=== PATIENT | female | born 1990 | race Caucasian/White ===

== ENCOUNTER 2020-10-15 07:06 | Inpatient (IN) | payer BC ==
[~2020-10-15 07:06] MED LIST: Lidocaine 1.5% with EPINEPHrine 1:200,000 5 ML Amp ONE
[2020-10-15] MEDS ORDERED: Nalbuphine 10 MG/1 ML Vial IVPUSH PRN (07:15)
[2020-10-15] MEDS ORDERED: Oxytocin/Lactated Ringers 10 UNIT/1,000 ML BAG IV SCH ×2 (07:15)
[2020-10-15] MEDS ORDERED: Ondansetron 4 MG/2 ML SDV IVPUSH PRN (07:15)
[2020-10-15] MEDS ORDERED: Calcium Carbonate 500 MG Tab.Chew PO PRN (07:15)
[2020-10-15] MEDS ORDERED: Sodium Chloride 0.9% 10 ML Syringe FLUSH PRN (07:15)
[2020-10-15] MEDS: Lactated Ringers 1,000 ML IV SCH ×4 (07:59→13:34)
[2020-10-15] MEDS ORDERED: diphenhydrAMINE 50 MG/ML SDV IVPUSH PRN (11:33)
[2020-10-15] MEDS ORDERED: Bupivacaine/fentaNYL/NS 100 ML Bag EPIDUR PRN (11:33)
[2020-10-15] MEDS ORDERED: fentaNYL 100 MCG/2 ML SDV EPIDUR PRN (11:33)
[2020-10-15] MEDS ORDERED: ePHEDrine 50 MG/ML SDV IVPUSH PRN (11:33)
--- NOTE | 2020-10-15 11:45 | PCM.PREANE ---
Preanesthetic Assessment - Procedure Proposed Procedure: Continuous labor epidural - Anesthesia/Transfusion/Family Hx Anesthesia History: Prior Anesthesia Without Reaction Transfusion History: No Prior Transfusion(s) - Review of Systems General: No Symptoms Pulmonary: No Symptoms Cardiovascular: No Symptoms Gastrointestinal: No Symptoms Neurological: No Symptoms Other: Reports: None - Physical Assessment Vital Signs: Last Vital Signs Temp 97.9 F 10/15/20 07:15 Pulse 94 10/15/20 07:15 Resp 16 10/15/20 07:15 BP 107/73 10/15/20 07:15 Pulse Ox 100 10/15/20 07:15 Height: 1.57 m Weight: 71.214 kg ASA Class: 2 Mental Status: Alert & Oriented x3 Airway Class: Mallampati = 1 Dentition: Reports: Normal Dentition Thyro-Mental Finger Breadths: 3 Mouth Opening Finger Breadths: 3 ROM/Head Extension: Full Lungs: Clear to Auscultation, Normal Respiratory Effort Cardiovascular: Regular Rate, Regular Rhythm - Lab Values: Laboratory Last Values WBC 10.78 K/mm3 (3.98-10.04) H 10/15/20 07:30 RBC 4.10 M/mm3 (3.98-5.22) 10/15/20 07:30 Hgb 12.4 gm/dl (11.2-15.7) 10/15/20 07:30 Hct 36.7 % (34.1-44.9) 10/15/20 07:30 MCV 89.5 fl (79.4-94.8) 10/15/20 07:30 MCH 30.2 pg (25.6-32.2) 10/15/20 07:30 MCHC 33.8 g/dl (32.2-35.5) 10/15/20 07:30 RDW Std Deviation 41.2 fL (36.4-46.3) 10/15/20 07:30 Plt Count 264 K/mm3 (182-369) 10/15/20 07:30 MPV 10.0 fl (9.4-12.3) 10/15/20 07:30 Neut % (Auto) 75.0 % (34.0-71.1) H 10/15/20 07:30 Lymph % (Auto) 18.2 % (19.3-51.7) L 10/15/20 07:30 [place] % (Auto) 4.5 % (4.7-12.5) L 10/15/20 07:30 Eos % (Auto) 1.6 (0.7-5.8) 10/15/20 07:30 Baso % (Auto) 0.2 % (0.1-1.2) 10/15/20 07:30 Neut # (Auto) 8.10 K/mm3 (1.56-6.13) H 10/15/20 07:30 Lymph # (Auto) 1.96 K/mm3 (1.18-3.74) 10/15/20 07:30 [place] # (Auto) 0.48 K/mm3 (0.24-0.36) H 10/15/20 07:30 Eos # (Auto) 0.17 K/mm3 (0.04-0.36) 10/15/20 07:30 Baso # (Auto) 0.02 K/mm3 (0.01-0.08) 10/15/20 07:30 SARS-CoV-2 RNA (YUE) Negative (NEGATIVE) 10/15/20 07:35 - Allergies Allergies/Adverse Reactions: Allergies Allergy/AdvReac Type Severity Reaction Status Date / Time No Known Allergies Allergy Verified 03/08/18 07:42 - Acknowledgements Anesthesia Type Planned: Epidural Pt an Appropriate Candidate for the Planned Anesthesia: Yes Alternatives and Risks of Anesthesia Discussed w Pt/Guardian: Yes Pt/Guardian Understands and Agrees with Anesthesia Plan: Yes PreAnesthesia Questionnaire - Past Health History Medical/Surgical History: Denies 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: - Past Surgical History HEENT Surgical History: Reports: Oral Surgery Other HEENT Surgeries/Procedures: [place] teeth - SUBSTANCE USE Tobacco Use Status *Q: Never Tobacco User Second Hand Smoke Exposure: No Recreational Drug Use History: No - HOME MEDS Home Medications: Home Meds Vit with Ca/FA/Iron [ Plus Iron] 1 each PO DAILY tablet 02/23/16 [Rx] Ferrous Sulfate [Iron] 325 mg PO DAILY 03/08/18 [History] Acetaminophen [Tylenol] 650 mg PO Q4H PRN tablet 10/16/20 [Rx] Ibuprofen [Motrin] 600 mg PO Q4H PRN tablet 10/16/20 [Rx] - CURRENT (IN HOUSE) MEDS Current Meds: Current Medications Calcium Carbonate/Glycine (Tums) 1,000 mg PO Q2H PRN PRN Reason: Indigestion Diphenhydramine HCl (Benadryl) 25 mg IVPUSH Q6H PRN PRN Reason: pruritis Ephedrine Sulfate (Ephedrine Sulfate) 5 mg IVPUSH ASDIRECTED PRN PRN Reason: Hypotension Fentanyl (Sublimaze) 100 mcg EPIDUR Q3H PRN PRN Reason: Pain Fentanyl/Bupivacaine HCl (Fentanyl/Bupivacaine/Ns 2 Mcg-0.125% 100 Ml) 100 ml EPIDUR ASDIRECTED PRN PRN Reason: Pain Oxytocin/Lactated Ringer's (Pitocin In Lr 10 Units/1,000 Ml) 10 unit in 1,000 mls @ 12 mls/hr IV TITRATE CHETNA; Protocol Last Titration: 10/15/20 09:30 Dose: 10 munits/min, 60 mls/hr Documented by: Oxytocin/Lactated Ringer's (Pitocin In Lr 10 Units/1,000 Ml) 10 unit in 1,000 mls @ 500 mls/hr IV .CONTINUOUS CHETNA Lactated Ringer's (Ringers, Lactated) 1,000 mls @ 100 mls/hr IV ASDIRECTED CHETNA Last Admin: 10/15/20 11:17 Dose: 100 mls/hr Documented by: Nalbuphine HCl (Nubain) 10 mg IVPUSH Q2H PRN PRN Reason: Pain Ondansetron HCl (Zofran) 4 mg IVPUSH Q4H PRN PRN Reason: Nausea/Vomiting Sodium Chloride (Saline Flush) 10 ml FLUSH ASDIRECTED PRN PRN Reason: Keep Vein Open
--- NOTE | 2020-10-15 11:51 | PCM.LDHP ---
L&D History of Present Illness - General Date of Service: 10/15/20 Admit Problem/Dx: Patient Status Order with Admit Dx/Problem 10/15/20 07:15 Patient Status [ADT] Routine Admission Diagnosis/Problem Admission Diagnosis/Problem 10/15/20 11:43 Dorie is a 30-year-old 3 para 2-0-0-2 white female who was admitted on the a.m. of 10/15/2020 at 40 and 07 weeks gestational age with an MARIKA of 10/15/2020 for induction of labor. Source of Information: Patient History Limitations: Reports: No Limitations - History of Present Illness Introduction:: Dorie is a 30-year-old 3 para 2-0-0-2 white female who was admitted on the a.m. of 10/15/2020 at 40 and 07 weeks gestational age with an MARIKA of 10/15 for induction of labor. Process and procedure of induction of labor, its risks, benefits, alternatives of care including allowing for natural onset of labor are all discussed with patient and her . They appear to understand and wished to proceed. 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 Her MARIKA of 10/15/2020 was determined by a certain last menstrual period starting 01/09/2020 and supported by 2 ultrasounds done on 03/11/2020 at 9-0/7 weeks and again on 05/28/2020 at 20-3/7 weeks gestational age. Patient was seen early in her care at 9 weeks gestational age, was seen on a regular basis throughout the care. Her vital signs remained stable through the care. Her weight gain was from 132 pounds to 154.6 pounds. Fundal height growth was appropriate. Patient desires an epidural in labor delivery. She is group B strep negative. She declined genetic testing. She reports it being Covid19 test positive back in June 2020. She has no residual effects from this infection. She plans to breast-feed. She had her flu shot on 06/02/2020. Her Tdap was given on 07/28/2020. She had her HPV vaccinations back in 2010. Her hepatitis A vaccination in 2013. Her hepatitis B immunizations were given in 1992 and her meningococcal immunization was given in 2013. Her 2 previous pregnancies were as follows: 1. Female infant born 02/21/2014 at 40-4/7 weeks gestational age after 12 hours of labor7 pounds 3 ouncesNSVDepiduralSt. [facility] Hospital[facility]od 2. Female infant born 03/08/2018 at 40-5/7 weeks gestational age after 6 hours of labor8 pounds 5 ouncesNSVDepiduralSt. Highland-[facility] Hospitalchild[facility] name is [place] Laboratory testing in shows blood to be a positive screen. First labs showed a hemoglobin of 12.2 g/dL and platelets at 256,000. She is rubella immune. RPR is nonreactive. Urine culture was negative. Hepatitis B surface antigen and HIV assays were both negative. Chlamydia and gonorrhea tests were both negative. Second trimester labs showed a hemoglobin 11.4 g/dL at which time patient was started on ferrous sulfate 325 mg p.o. daily. Her platelet count at that time was 251,000 and her 1 hour GTT was normal at 116. Her group B strep screen was negative. RPR was repeated on 07/22/2020 that was also nonreactive. Allergies: None Medications: 1. vitamins 1 p.o. daily 2. Ferrous sulfate 325 mg p.o. daily. Past medical history: 1. x2 2. [place] teeth removal Past surgical history: Unremarkable. Family history: Mother and father are alive and well. Mother is status post thyroidectomy. Father's family carries factor V Leiden mutation but this has not been a problem with her. Maternal grandmother is secondary to COPD secondary to smoking. Maternal grandfather is alive but was also a smoker. Paternal grand mother was a smoker has a history of lung cancer. Also has a history of arthritis. Paternal grandfather is alive. Health is unknown. There are no bleeding, clotting, anesthesia or problems related in the [facility]. Social history: Patient is . 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 She is a college graduate. Her is Jhon. She does not use any significant muscle alcohol, drugs or tobacco. They live in [place]. Review of systems: In general patient has no complaints. AV has been active. Skin: Negative Lungs: No infectious symptoms or shortness of breath Cardiovascular: No chest pain or exercise intolerance Breasts: No lumps, changes in size, pain, dimpling, discharge or axillary or supraclavicular concerns. GI: Negative : changes only Musculoskeletal: Negative Neurological: Negative Physical exam: In general the patient is well-developed, well-nourished, pleasant female of stated age in no acute distress. Last evaluation clinic on 10/07/2020 patient's weight was 154.6 with a pregravid weight of 132 pounds. Height is 5 feet 2 inches. Pregravid body mass index is 23.2. Blood pressure was 100/58 38 cm. Skin is warm dry without lesions. HEENT, neck and back within normal limits. Lungs are clear with good breath sounds in all lung morton. Cardiovascular exam shows regular and rhythm without murmurs. Breast exam is deferred at this time having been done at first visit and found to be normal it is not repeated at. Abdomen is gravid with last fundal height in clinic at 38 cm with baby in vertex presentation by Sanjay maneuvers Genital per digital exam on last evaluation clinic shows cervix to be 2 cm, very soft, -3, mid position, 70% effaced.. Extremities and neurological exam are grossly within normal limits. 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: - Past Surgical History HEENT Surgical History: Reports: Oral Surgery Other HEENT Surgeries/Procedures: [place] teeth Social & Family History - Family History Family Medical History: No Pertinent Family History - Tobacco Use Tobacco Use Status *Q: Never Tobacco User Second Hand Smoke Exposure: No - Caffeine Use Caffeine Use: Reports: Coffee - Recreational Drug Use Recreational Drug Use: No H&P Review of Systems - Review of Systems: Review Of Systems: See Below L&D Exam - Exam Exam: See Below - Vital Signs Vital Signs: Last Vital Signs Temp 36.6 C 10/15/20 07:15 Pulse 94 10/15/20 07:15 Resp 16 10/15/20 07:15 BP 107/73 10/15/20 07:15 Pulse Ox 100 10/15/20 07:15 Weight: 71.214 kg - Patient Data Lab Results Last 24 hrs: Laboratory Results - last 24 hr 10/15/20 10/15/20 Range/Units 07:30 07:35 WBC 10.78 H (3.98-10.04) K/mm3 RBC 4.10 (3.98-5.22) M/mm3 Hgb 12.4 (11.2-15.7) gm/dl Hct 36.7 (34.1-44.9) % MCV 89.5 (79.4-94.8) fl MCH 30.2 (25.6-32.2) pg MCHC 33.8 (32.2-35.5) g/dl RDW Std Deviation 41.2 (36.4-46.3) fL Plt Count 264 (182-369) K/mm3 MPV 10.0 (9.4-12.3) fl Neut % (Auto) 75.0 H (34.0-71.1) % Lymph % (Auto) 18.2 L (19.3-51.7) % [place] % (Auto) 4.5 L (4.7-12.5) % Eos % (Auto) 1.6 (0.7-5.8) Baso % (Auto) 0.2 (0.1-1.2) % Neut # (Auto) 8.10 H (1.56-6.13) K/mm3 Lymph # (Auto) 1.96 (1.18-3.74) K/mm3 [place] # (Auto) 0.48 H (0.24-0.36) K/mm3 Eos # (Auto) 0.17 (0.04-0.36) K/mm3 Baso # (Auto) 0.02 (0.01-0.08) K/mm3 SARS-CoV-2 RNA (YUE) Negative (NEGATIVE) Result Diagrams: 10/15/20 07:30 Problem List Initiated/Reviewed/Updated: Yes Orders Last 24hrs: Active Orders 24 hr Category Date Time Status Patient Status [ADT] Routine ADT 10/15/20 07:15 Active Activity as Tolerated [RC] PFP Care 10/15/20 07:15 Active Communication Order [RC] ASDIRECTED Care 10/15/20 07:15 Active Heart Tones [RC] ASDIRECTED Care 10/15/20 07:15 Active Non Stress Test [RC] PER UNIT ROUTINE Care 10/15/20 07:15 Active Notify Provider [RC] ASDIRECTED Care 10/15/20 11:34 Active Notify Provider [RC] PFP Care 10/15/20 07:15 Active Notify Provider [RC] PRN Care 10/15/20 07:15 Active Peripheral IV Care [RC] . DIRECTED Care 10/15/20 07:15 Active Vital Signs [RC] PER UNIT ROUTINE Care 10/15/20 07:15 Active Regular Diet [DIET] Diet 10/15/20 Breakfast Active BLOOD BANK HOLD SPECIMEN [BBK] Stat Lab 10/15/20 07:15 Ordered RAPID PLASMA REAGIN,RPR [CHEM] Routine Lab 10/15/20 07:15 Ordered Bupivacaine/fentaNYL/NS [fentaNYL/Bupivacaine/NS 2 MCG- Med 10/15/20 11:33 Active 0.125% 100 ML] 100 ml EPIDUR ASDIRECTED PRN Calcium Carbonate [Tums] Med 10/15/20 07:15 Active 1,000 mg PO Q2H PRN Lactated Ringers [Ringers, Lactated] 1,000 ml Med 10/15/20 07:15 Active IV ASDIRECTED Nalbuphine [Nubain] Med 10/15/20 07:15 Active 10 mg IVPUSH Q2H PRN Ondansetron [Zofran] Med 10/15/20 07:15 Active 4 mg IVPUSH Q4H PRN Oxytocin/Lactated Ringers [Pitocin in LR 10 Units/1,000 Med 10/15/20 07:15 Active ML] 10 unit in 1,000 ml IV .CONTINUOUS Oxytocin/Lactated Ringers [Pitocin in LR 10 Units/1,000 Med 10/15/20 07:15 Active ML] 10 unit in 1,000 ml IV TITRATE Sodium Chloride 0.9% [Saline Flush] Med 10/15/20 07:15 Active 10 ml FLUSH ASDIRECTED PRN diphenhydrAMINE [Benadryl] Med 10/15/20 11:33 Active 25 mg IVPUSH Q6H PRN ePHEDrine [ePHEDrine sulfate] Med 10/15/20 11:33 Active 5 mg IVPUSH ASDIRECTED PRN fentaNYL [Sublimaze] Med 10/15/20 11:33 Active 100 mcg EPIDUR Q3H PRN Electronic Heart Tones Ext w TOCO [WOMSER] Oth 10/15/20 07:15 Ordered Routine Electronic Heart Tones Internal [WOMSER] Per Unit Oth 10/15/20 07:15 Ordered Routine Peripheral IV Insertion Adult [OM.PC] Routine Oth 10/15/20 07:15 Ordered Resuscitation Status Routine Resus Stat 10/15/20 07:15 Ordered Medication Orders Calcium Carbonate/Glycine (Tums) 1,000 mg PO Q2H PRN PRN Reason: Indigestion Diphenhydramine HCl (Benadryl) 25 mg IVPUSH Q6H PRN PRN Reason: pruritis Ephedrine Sulfate (Ephedrine Sulfate) 5 mg IVPUSH ASDIRECTED PRN PRN Reason: Hypotension Fentanyl (Sublimaze) 100 mcg EPIDUR Q3H PRN PRN Reason: Pain Fentanyl/Bupivacaine HCl (Fentanyl/Bupivacaine/Ns 2 Mcg-0.125% 100 Ml) 100 ml EPIDUR ASDIRECTED PRN PRN Reason: Pain Oxytocin/Lactated Ringer's (Pitocin In Lr 10 Units/1,000 Ml) 10 unit in 1,000 mls @ 12 mls/hr IV TITRATE CHETNA; Protocol Last Titration: 10/15/20 09:30 Dose: 10 munits/min, 60 mls/hr Documented by: [id number] Titration: 10/15/20 09:00 Dose: 8 munits/min, 48 mls/hr Documented by: [id number] Titration: 10/15/20 08:40 Dose: 6 munits/min, 36 mls/hr Documented by: [id number] Titration: 10/15/20 08:20 Dose: 4 munits/min, 24 mls/hr Documented by: [id number] Admin: 10/15/20 07:59 Dose: 2 munits/min, 12 mls/hr Documented by: [id number] Oxytocin/Lactated Ringer's (Pitocin In Lr 10 Units/1,000 Ml) 10 unit in 1,000 mls @ 500 mls/hr IV .CONTINUOUS CHETNA Lactated Ringer's (Ringers, Lactated) 1,000 mls @ 100 mls/hr IV ASDIRECTED CHETNA Last Admin: 10/15/20 11:17 Dose: 100 mls/hr Documented by: [id number] Infusion: 10/15/20 11:17 Dose: 100 mls/hr Documented by: [id number] Admin: 10/15/20 07:59 Dose: 100 mls/hr Documented by: [id number] Nalbuphine HCl (Nubain) 10 mg IVPUSH Q2H PRN PRN Reason: Pain Ondansetron HCl (Zofran) 4 mg IVPUSH Q4H PRN PRN Reason: Nausea/Vomiting Sodium Chloride (Saline Flush) 10 ml FLUSH ASDIRECTED PRN PRN Reason: Keep Vein Open Assessment/Plan Comment:: 1.Dorie is a 30-year-old 3 para 2-0-0-2 white female who was admitted on the a.m. of 10/15/2020 at 40 and 07 weeks gestational age with an MARIKA of 10/15/2020 for induction of labor. 2. Group B strep screen negative 3. Patient desires epidural in labor 4. Low risk 5. Patient plans to breast-feed 6. Patient is rubella immune. She has received her Tdap during the course of the . She also received her flu shot during the second trimester. Plan: 1. Pitocin induction of labor followed by AROM and augmentation. The proced ure, risk, benefits, alternatives of care discussed with patient. She appears understand and wishes to proceed. 2. Admission labs to include Covid19 testing, CBC, RPR per protocol 3. Anticipate 4. Support breast-feeding plan 5. Routine labor care.
--- NOTE | 2020-10-15 16:05 | PCM.SN.2 ---
- Free Text/Narrative Note: Delivery note: Dorie is a 30-year-old 3 now para 3-0-0-3 white female who was admitted on the a.m. of 10/15/2020 at 40 and 0/7 weeks gestational age with an MARIKA of 10/15/2020 for induction of labor at approximate 0730 hrs. She initially underwent Pitocin induction with AROM augmentation. She underwent epidural for labor analgesia with good results. She achieved complete cervical dilation by approximately 1500 hrs. on 10/15/2020. She proceeded to push and within the course of approximately 20 minutes she delivered a viable, morales, female in a right occiput anterior position at 1533 hrs. on 10/15/2020. The baby was placed on mom's abdomen, nose mouth were bulb suctioned. There was a meconium that noted after delivery of the baby. Fluid have been clear up to that point. Baby was placed on mom's abdomen and was dried in usual fashion. Umbilical cord was allowed to pulsate x 2 to 3 minutes. It was then clamped x2 and cut by the baby's Father Jhon. The umbilical cord had 3 vessels within it. Baby is a female , had a weight of 3280 g (7 pounds 3.7 ounces) and a length of 21.0 inches. Pitocin per routine solution rate was increased to 500 cc an hour to facilitate increase in uterine tone and decrease likelihood of bleeding. The patient had a small second-degree laceration which was repaired with 3-0 Monocryl suture in a routine fashion using labor epidural analgesia for perineal laceration repair anesthesia. The placenta delivered via a Horton presentation at 1541 hrs. It appeared intact and complete and was discarded per patient desire. Estimated blood loss was approximately 200 cc quantitative.
[2020-10-15] MEDS ORDERED: Witch Hazel Medicated Pads 40/Jar TOP PRN (16:43)
[2020-10-15] MEDS ORDERED: Benzocaine/Menthol 20%-0.5% Spray 56 GM Canister TOP PRN (16:43)
[2020-10-15] MEDS ORDERED: Acetaminophen 325 MG Tab PO PRN (16:43)
--- NOTE | 2020-10-15 18:49 | PCM48HPAN ---
Post Anesthesia Note - EVALUATION WITHIN 48HRS OF ANESTHETIC Vital Signs in Normal Range: Yes Patient Participated in Evaluation: Yes Respiratory Function Stable: Yes Airway Patent: Yes Cardiovascular Function Stable: Yes Hydration Status Stable: Yes Pain Control Satisfactory: Yes Nausea and Vomiting Control Satisfactory: Yes Mental Status Recovered: Yes Vital Signs: Last Vital Signs Temp 97.9 F 10/15/20 07:15 Pulse 94 10/15/20 07:15 Resp 16 10/15/20 07:15 BP 107/73 10/15/20 07:15 Pulse Ox 100 10/15/20 07:15
[2020-10-15] MEDS: Ibuprofen 600 MG Tab PO PRN (20:18)
[2020-10-15] MEDS: Docusate Sodium 100 MG Cap PO SCH (21:26)
[2020-10-16] MEDS: Ibuprofen 600 MG Tab PO PRN ×3 (00:48→11:29)
[2020-10-16] MEDS ORDERED: Prenatal Multivitamin with Calcium/Folic Acid/Iron Tab PO SCH (09:00)
[2020-10-16] MEDS: Docusate Sodium 100 MG Cap PO SCH (09:12)
--- NOTE | 2020-10-16 12:03 | PCM.DCSUM1 ---
Discharge Summary - Hospital Course Free Text/Narrative:: Dorie is a 30-year-old 3 now para 3-0-0-3 white female who was admitted on the a.m. of 10/15/2020 at 40 and 0/7 weeks gestational age with an MARIKA of 10/15/2020 for induction of labor at approximate 0730 hrs. She initially underwent Pitocin induction with AROM augmentation. She underwent epidural for labor analgesia with good results. She achieved complete cervical dilation by approximately 1500 hrs. on 10/15/2020. She proceeded to push and within the course of approximately 20 minutes she delivered a viable, morales, female infant in a right occiput anterior position at 1533 hrs. on 10/15/2020. The baby was placed on mom's abdomen, nose mouth were bulb suctioned. There was a meconium that noted after delivery of the baby. Fluid have been clear up to that point. Baby was placed on mom's abdomen and was dried in usual fashion. Umbilical cord was allowed to pulsate x 2 to 3 minutes. It was then clamped x2 and cut by the baby's Father Jhon. The umbilical cord had 3 vessels within it. Baby is a female infant, had a weight of 3280 g (7 pounds 3.7 ounces) and a length of 21.0 inches. Pitocin per routine solution rate was increased to 500 cc an hour to facilitate increase in uterine tone and decrease likelihood of bleeding. The patient had a small second-degree laceration which was repaired with 3-0 Monocryl suture in a routine fashion using labor epidural analgesia for perineal laceration repair anesthesia. The placenta delivered via a Horton presentation at 1541 hrs. It appeared intact and complete and was discarded per patient desire. Estimated blood loss was approximately 200 cc quantitative. patient has done very well. She is breast-feeding without problems. She has minimal lochia. She initially had an inability to void, was given Urecholine but was still unable to void and therefore catheter was placed in the bladder overnight. On the a.m. following delivery she was able to void numerous times without significant difficulty. Her vital signs are stable, she is afebrile. She is desiring discharge home. Condition: Good Diagnosis: Stroke: No - Discharge Data Discharge Date: 10/16/20 Discharge Disposition: Home, Self-Care 01 Condition: Good - Referral to Home Health Primary Care Physician: Nasreen Zamarripa PA-C - Patient Instructions Diet: Regular Diet as Tolerated (Nursing diet with increased calories and calcium as recommended) Activity: As Tolerated (No intercourse or tampons until bleeding resolves) Driving: May Drive Today Showering/Bathing: May Shower Notify Provider of: Fever, Increased Pain, Swelling and Redness, Nausea and/or Vomiting - Discharge Plan Home Medications: Home Meds Vit with Ca/FA/Iron [ Plus Iron] 1 each PO DAILY tablet 02/23/16 [Rx] Ferrous Sulfate [Iron] 325 mg PO DAILY 03/08/18 [History] Acetaminophen [Tylenol] 650 mg PO Q4H PRN tablet 10/16/20 [Rx] Ibuprofen [Motrin] 600 mg PO Q4H PRN tablet 10/16/20 [Rx] Referrals: Flip Richards MD [Physician] - (Return to clinic[facility]. Richards[facility]3 weeks.) - Discharge Summary/Plan Comment DC Time >30 min.: No Discharge Summary/Plan Comment: Discharge instructions: 1. Discharge home 2. Diet, activity and follow-up discussed with patient. Recommend nursing diet with increased calories and calcium. 3. Precautions given concern increased pain, bleeding, temperature, signs/symptoms of DVT/PE. 4. Medications per home medication was printed, discussed with and given to the patient. 5. Return to clinic-Dr. Richards[facility] in 2 weeks. Diagnosis: 1. Term -delivered 2. Mild urinary retentionresolved Condition: Good - Patient Data Vitals - Most Recent: Last Vital Signs Temp 36.8 C 10/16/20 08:46 Pulse 76 10/16/20 08:46 Resp 14 10/16/20 08:46 BP 97/68 10/16/20 08:46 Pulse Ox 94 L 10/16/20 08:46 Weight - Most Recent: 71.214 kg I&O - Last 24 hours: Intake & Output 10/15/20 10/16/20 10/16/20 22:59 06:59 14:59 Intake Total 1999 1600 1999 Output Total 1800 2675 1200 Balance 200 -1075 800 Med Orders - Current: Current Medications Acetaminophen (Tylenol) 650 mg PO Q4H PRN PRN Reason: mild pain or fever Benzocaine/Menthol (Dermoplast Pain Relief [place]) 0 gm TOP ASDIRECTED PRN PRN Reason: Perineal Comfort Measure Bethanechol Chloride (Urecholine) 10 mg PO TID COUNTS INCLUDE 234 BEDS AT THE [facility] Last Admin: 10/16/20 09:11 Dose: 10 mg Documented by: Docusate Sodium (Colace) 100 mg PO BID COUNTS INCLUDE 234 BEDS AT THE [facility] Last Admin: 10/16/20 09:12 Dose: Not Given Documented by: Ibuprofen (Motrin) 600 mg PO Q4H PRN PRN Reason: Mild pain or fever Last Admin: 10/16/20 11:29 Dose: 600 mg Documented by: Phillip Multivit/[place]/Iron/Folic Ac ( Plus Iron) 1 each PO DAILY COUNTS INCLUDE 234 BEDS AT THE [facility] Last Admin: 10/16/20 08:45 Dose: Not Given Documented by: Nan Mack ([facility]) 1 pad TOP ASDIRECTED PRN PRN Reason: Perineal Comfort Measure Discontinued Medications Bethanechol Chloride (Urecholine) 10 mg PO ONETIME ONE Stop: 10/15/20 17:40 Last Admin: 10/15/20 17:49 Dose: 10 mg Documented by: Calcium Carbonate/Glycine (Tums) 1,000 mg PO Q2H PRN PRN Reason: Indigestion Diphenhydramine HCl (Benadryl) 25 mg IVPUSH Q6H PRN PRN Reason: pruritis Ephedrine Sulfate (Ephedrine Sulfate) 5 mg IVPUSH ASDIRECTED PRN PRN Reason: Hypotension Fentanyl (Sublimaze) 100 mcg EPIDUR Q3H PRN PRN Reason: Pain Last Admin: 10/15/20 12:07 Dose: 100 mcg Documented by: Fentanyl/Bupivacaine HCl (Fentanyl/Bupivacaine/Ns 2 Mcg-0.125% 100 Ml) 100 ml EPIDUR ASDIRECTED PRN PRN Reason: Pain Last Admin: 10/15/20 11:55 Dose: 100 ml Documented by: Oxytocin/Lactated Ringer's (Pitocin In Lr 10 Units/1,000 Ml) 10 unit in 1,000 mls @ 12 mls/hr IV TITRATE COUNTS INCLUDE 234 BEDS AT THE [facility]; Protocol Last Titration: 10/15/20 15:35 Dose: 500 munits/min, 3,000 mls/hr Documented by: Oxytocin/Lactated Ringer's (Pitocin In Lr 10 Units/1,000 Ml) 10 unit in 1,000 mls @ 500 mls/hr IV .CONTINUOUS CHETNA Lactated Ringer's (Ringers, Lactated) 1,000 mls @ 100 mls/hr IV ASDIRECTED CHETNA Last Admin: 10/15/20 13:34 Dose: 100 mls/hr Documented by: Nalbuphine HCl (Nubain) 10 mg IVPUSH Q2H PRN PRN Reason: Pain Ondansetron HCl (Zofran) 4 mg IVPUSH Q4H PRN PRN Reason: Nausea/Vomiting Sodium Chloride (Saline Flush) 10 ml FLUSH ASDIRECTED PRN PRN Reason: Keep Vein Open
[2020-10-16 16:40] VITALS: BP 99/68; PULSE 90
== END 2020-10-16 16:37 | disposition home or self-care (01) | DRG 560 ==
LOC: JD.OB 07:06 → OBSVTOIN 15:33 → JD.OB 15:34
PROVIDERS: ADMIT Obstetrics & Gynecology; ATTEND Obstetrics & Gynecology
PROC: 10E0XZZ Delivery of Products of Conception, External Approach (ICD-10-PCS; principal; 2020-10-15)
PROC: 10907ZC Drainage of Amniotic Fluid, Therapeutic from Products of Conception, Via Natural or Artificial Opening (ICD-10-PCS; 2020-10-15)
PROC: 3E033VJ Introduction of Other Hormone into Peripheral Vein, Percutaneous Approach (ICD-10-PCS; 2020-10-15)
PROC: 0KQM0ZZ Repair Perineum Muscle, Open Approach (ICD-10-PCS; 2020-10-15)
PROC: 3E0R3BZ Introduction of Anesthetic Agent into Spinal Canal, Percutaneous Approach (ICD-10-PCS; 2020-10-15)
PROC: 00HU33Z Insertion of Infusion Device into Spinal Canal, Percutaneous Approach (ICD-10-PCS; 2020-10-15)
DX: O77.0 Labor and delivery complicated by meconium in amniotic fluid (principal); O70.1 Second degree perineal laceration during delivery; Z86.16 Personal history of COVID-19; Z20.822 Contact with and (suspected) exposure to COVID-19; Z37.0 Single live birth; Z3A.40 40 weeks gestation of pregnancy
CPT/HCPCS: 01967; 36415; 51702; 59025; 59409; 85025; A9270-GY; J2590; J3010; J7120; U0002

== ENCOUNTER 2023-07-18 07:10 | Inpatient (IN) | payer BC ==
[~2023-07-18 07:10] MED LIST changes: +Lidocaine 1% 10 ML MDV ONE; -Lidocaine 1.5% with EPINEPHrine 1:200,000 5 ML Amp ONE
[2023-07-18] MEDS ORDERED: Ondansetron 4 MG/2 ML SDV IVPUSH PRN (07:11)
[2023-07-18] MEDS ORDERED: Lidocaine 1% 50 ML MDV INJECT PRN (07:11)
[2023-07-18] MEDS ORDERED: Sodium Chloride 0.9% 10 ML Syringe FLUSH PRN (07:11)
[2023-07-18] MEDS ORDERED: Acetaminophen 325 MG Tab PO PRN ×2 (07:11→17:33)
[2023-07-18] MEDS ORDERED: Nalbuphine HCl 10 MG/ 1ML Amp IVPUSH PRN (07:11)
[2023-07-18] MEDS ORDERED: Oxytocin/Lactated Ringers 30 UNIT/500 ML BAG IV SCH ×2 (07:15)
[2023-07-18 07:28] LABS: BASOPHILS PERCENT AUTO 0.3 % (0.0-1.0); EOSINOPHILS ABSOLUTE AUTO 0.1 K/mm3 (0.0-0.4); EOSINOPHILS PERCENT AUTO 1.3 % (0.0-6.0); HEMATOCRIT 36.7 % (37.0-47.0); HEMOGLOBIN 12.8 gm/dl (12.0-16.0); IMMATURE GRAN ABSOLUTE AUTO 0.08 K/mm3 (0.00-0.05); IMMATURE GRAN PERCENT AUTO 0.8 % (0.0-0.4); LYMPHOCYTES ABSOLUTE AUTO 1.7 K/mm3 (1.0-4.8); LYMPHOCYTES PERCENT AUTO 17.4 % (24.0-44.0); MEAN CORPUSCULAR HEMOGLOBIN 30.9 pg (28.0-32.0); MEAN CORPUSCULAR HGB CONC 34.9 g/dl (32.0-36.0); MEAN CORPUSCULAR VOLUME 88.6 fl (83.0-99.0); MEAN PLATELET VOLUME 9.9 fl (9.4-12.3); MONOCYTES ABSOLUTE AUTO 0.4 K/mm3 (0.0-0.8); NEUTROPHILS ABSOLUTE AUTO 7.5 K/mm3 (1.8-7.7); NEUTROPHILS PERCENT AUTO 76.2 % (41.0-71.0); PLATELET COUNT,PLT 234 K/mm3 (150-400); RED BLOOD CELL COUNT 4.14 M/mm3 (4.10-5.30); WHITE BLOOD CELL COUNT,WBC 9.83 K/mm3 (3.9-11.3)
[2023-07-18 07:47] LABS: ALANINE AMINOTRANSFERASE,ALT 162 U/L (14-59); ASPARTATE AMNIOTRANSFERASE,AST 64 U/L (15-37)
[2023-07-18] MEDS: Lactated Ringers 1,000 ML IV SCH ×2 (07:50→14:25)
[2023-07-18] MEDS ORDERED: ePHEDrine 50 MG/ML SDV IVPUSH PRN (08:24)
[2023-07-18] MEDS ORDERED: fentaNYL 100 MCG/2 ML SDV EPIDUR PRN (08:24)
[2023-07-18] MEDS ORDERED: Bupivacaine/fentaNYL/NS 100 ML Bag EPIDUR PRN (08:24)
[2023-07-18] MEDS ORDERED: diphenhydrAMINE 50 MG/ML SDV IVPUSH PRN (08:24)
[2023-07-18] MEDS ORDERED: Sodium Chloride 0.9% 10 ML Syringe FLUSH SCH (09:00)
[2023-07-18] MEDS ORDERED: Docusate Sodium 100 MG Cap PO PRN (17:33)
[2023-07-18] MEDS ORDERED: Benzocaine/Menthol 20%-0.5% Spray 78 GM Cannister TOP PRN (17:33)
[2023-07-18] MEDS ORDERED: Erythromycin Base 0.5% Ophth Oint 1 GM Tube EYEBOTH ONE (17:58)
[2023-07-18] MEDS ORDERED: Glucose Gel 15 GM in 37.5 GM Tube PO PRN (17:58)
[2023-07-18] MEDS ORDERED: Hepatitis B Virus Vaccine PF (Ped/Adolescent) 5 MCG/0.5 ML Syringe IM ONE (17:58)
[2023-07-18] MEDS: Ibuprofen 600 MG Tab PO PRN (20:44)
[2023-07-18] MEDS: Witch Hazel Medicated Pads 40/Jar TOP PRN (20:46)
[2023-07-19] MEDS: Ibuprofen 600 MG Tab PO PRN (03:20)
[2023-07-19] MEDS: Witch Hazel Medicated Pads 40/Jar TOP PRN (18:27)
[2023-07-19 19:03] VITALS: BP 112/64; PULSE 77
== END 2023-07-19 18:59 | disposition home or self-care (01) | DRG 560 ==
LOC: JD.OB 07:10 → OBSVTOIN 17:17 → JD.OB 17:18
PROVIDERS: ADMIT Obstetrics & Gynecology; ATTEND Obstetrics & Gynecology
PROC: 10E0XZZ Delivery of Products of Conception, External Approach (ICD-10-PCS; principal; 2023-07-18)
PROC: 0HQ9XZZ Repair Perineum Skin, External Approach (ICD-10-PCS; 2023-07-18)
PROC: 10907ZC Drainage of Amniotic Fluid, Therapeutic from Products of Conception, Via Natural or Artificial Opening (ICD-10-PCS; 2023-07-18)
PROC: 3E0R3BZ Introduction of Anesthetic Agent into Spinal Canal, Percutaneous Approach (ICD-10-PCS; 2023-07-18)
PROC: 00HU33Z Insertion of Infusion Device into Spinal Canal, Percutaneous Approach (ICD-10-PCS; 2023-07-18)
DX: O26.643 Intrahepatic cholestasis of pregnancy, third trimester (principal); Z37.0 Single live birth; Z3A.37 37 weeks gestation of pregnancy; K83.1 Obstruction of bile duct; O69.81X0 Labor and delivery complicated by cord around neck, without compression, not applicable or unspecified; O70.0 First degree perineal laceration during delivery
CPT/HCPCS: 36415; 51702; 51703; 59025; 59409; 84450; 84460; 85025; 86592; 86850; 86900; 86901; A9270-GY; C1758; J3010; J3490; J7120; J7999

== ENCOUNTER 2023-11-27 05:59 | Emergency (ER) | payer BC ==
[2023-11-27] MEDS: Cyclobenzaprine 10 MG Tab PO ONE (06:30)
[2023-11-27] MEDS: Cyclobenzaprine 10 MG Tab ONE (06:48)
[2023-11-27] MEDS: Ketorolac 15 MG/ML SDV ONE (06:49)
[2023-11-27] MEDS: Ketorolac 15 MG/ML SDV IVPUSH ONE (06:49)
[2023-11-27 06:57] VITALS: BP 136/74; PULSE 101
== END 2023-11-27 06:54 | disposition home or self-care (01) ==
LOC: JD.ED 05:59
DX: M54.41 Lumbago with sciatica, right side (principal); Z79.899 Other long term (current) drug therapy
CPT/HCPCS: 96374; 99283; A9270; J1885

== ENCOUNTER 2023-12-18 21:47 | Emergency (ER) | payer BC ==
[2023-12-18 21:56] VITALS: BP 132/78; PULSE 59
== END 2023-12-18 23:00 | disposition home or self-care (01) ==
LOC: JD.ED 21:47
DX: M54.16 Radiculopathy, lumbar region (principal)
CPT/HCPCS: 99282; 99283